=== PATIENT | male | born 1990 | race Caucasian/White ===

== ENCOUNTER 2020-10-28 21:09 | Emergency (ER) | payer MEDICAID ==
[~2020-10-28] VITALS: Ht 170.2 cm; Wt 82.2 kg
[2020-10-28 21:13] VITALS: BP 136/87; Ht 170.2 cm; Wt 82.2 kg
== END 2020-10-28 21:55 | disposition home or self-care (01) ==
LOC: ED 21:09
DX: H57.11 Ocular pain, right eye (principal); Z77.098 Contact with and (suspected) exposure to other hazardous, chiefly nonmedicinal, chemicals